=== PATIENT | female | born 1975 | race Caucasian/White ===

== ENCOUNTER → 2022-09-08 | Outpatient (CLI) | payer BC ==
--- NOTE | 2022-09-10 12:25 | US ---
EXAMINATION TYPE: US pelvis complete transvag DATE OF EXAM: 09/08/2022 COMPARISON: NONE CLINICAL INDICATION: Female, 47 years old with history of R19.4 CHANGE IN BOWEL HABIT; TECHNIQUE: Transvaginal (TV) and Transabdominal (TA) . Transabdominal sonographic images of the pel vis were acquired. Transvaginal sonographic images were medically necessary to better assess the fol lowing anatomy: ovaries Date of LMP: hysterectomy 8 years ago EXAM MEASUREMENTS: Uterus: Surgically absent Endometrial Stripe: Surgically absent Right Ovary: 1.9 x 1.3 x 1.9 cm Left Ovary: 3.9 x 2.5 x 3.5 cm 1. Uterus: Surgically absent 2. Endometrium: Surgically absent 3. Right Ovary: wnl 4. Left Ovary: 2.7 x 2.4 x 2.9 cm cyst. 5. Bilateral Adnexa: wnl 6. Posterior cul-de-sac: wnl Uterus is surgically absent. The right ovary appears unremarkable. Simple appearing left ovarian cyst measuring up to 2.9 cm. No free fluid. IMPRESSION: 1. No acute process. 2. Simple appearing left ovarian cyst measuring up to 2.9 cm. 3. Postsurgical changes from hysterectomy.
== END | disposition home or self-care (01) ==
LOC: RADUSWWP 14:14
PROVIDERS: ATTEND Family Medicine
DX: N83.202 Unspecified ovarian cyst, left side (principal); R19.4 Change in bowel habit; Z90.710 Acquired absence of both cervix and uterus
CPT/HCPCS: 76830; 76856

== ENCOUNTER → 2022-09-12 | Outpatient (CLI) | payer BC ==
--- NOTE | 2022-09-13 14:19 | MM ---
Reason for Exam: Screening (asymptomatic). Baseline mammogram. Patient History: Menarche at age 14. First Full-Term at age 20. Hysterectomy at age 42. Risk Values: Lorraine 5 year model risk: 0.7%. NCI Lifetime model risk: 7.6%. Prior Study Comparison: Patient's first Mammogram. Tissue Density: The breast tissue is heterogeneously dense. This may lower the sensitivity of mammography. Findings: Analyzed By CAD. Pattern appears symmetrical. No suspicious groups of microcalcifications, spiculated or lobular masses, architectural distortion or other secondary signs of malignancy are mammographically apparent. Overall Assessment: Benign, BI-RAD 2 Management: Screening Mammogram of both breasts in 1 year. A negative mammogram report should not preclude additional follow up of suspicious palpable abnormalities. Patient should continue monthly self breast exam. A clinical breast exam by your physician is recommended on an annual basis and results should be correlated with mammographic findings. Electronically signed and approved by: Waldo Velazquez D.O. Radiologis
== END | disposition home or self-care (01) ==
LOC: RADMAMWWP 15:23
PROVIDERS: ATTEND Family Medicine
DX: Z12.31 Encounter for screening mammogram for malignant neoplasm of breast (principal)
CPT/HCPCS: 77063; 77067